=== PATIENT | male | born 1955 | race African-American/Black ===

== ENCOUNTER 2018-10-23 08:14 | Emergency (ER) | payer OTHER ==
[~2018-10-23] VITALS: Ht 185.4 cm; Wt 95.3 kg
--- NOTE | 2018-10-23 08:21 | NUR ---
ARRIVAL PT CAME TO ED WITH C/O OF R KNEE PAIN. ROM IS LIMITED, MINIMAL TO NO WT BEARING NOTED. BSM ON, REPORT GIVEN TO EDP.
[2018-10-23 08:36] VITALS: BP 146/75
[2018-10-23] MEDS ORDERED: TORADOL IM STA (08:38)
[2018-10-23] MEDS ORDERED: TORADOL ONE (08:39)
--- NOTE | 2018-10-23 08:45 | ER.PDOC ---
General Chief Complaint: Extremities Stated Complaint: RIGHT KNEE INJURY Time seen by MD: 08:43 Source: patient Exam Limitations: no limitations History of Present Illness Initial Comments Right knee pain since last night Context: twist Severity: moderate Associated Symptoms: popping sensation Allergies: Coded Allergies: Sulfa (Sulfonamide Antibiotics) (Verified Allergy, Unknown, 10/23/18) Past Medical History Medical History: hypertension, thyroid disease Surgical History: appendectomy, other Social History Smoking: non-smoker Alcohol Use: occassionally Drug Use: none Review of Systems Constitutional: no symptoms reported EENTM: no symptoms reported Respiratory: no symptoms reported Cardiovascular: no symptoms reported Gastrointestinal: no symptoms reported Musculoskeletal: see HPI All Other Systems: Reviewed and Negative Physical Exam General Appearance: Alert, No Apparent Distress Ankle: nml inspection, non-tender, nml ROM, no joint swelling, skin intact Knee: nml inspection, nml ROM, no joint swelling, tenderness (right knee) Thigh/Hip: nml inspection Gait: limited by pain Neuro/Vasc/Tendon: sensation nml, motor nml, no vascular compromise, tendon function nml Skin: warm/dry Head/ENT: nml inspection, pharynx nml Neck/Back: nml inspection, non-tender Abdomen: non-tender, pelvis stable Results/Orders Results/Orders Orders - SHRUTI CALDWELL MD Xr Knee Rt 2v (10/23/18 08:38) Ketorolac Tromethamine (Toradol) (10/23/18 08:38) Vital Signs Date Time Temp Pulse Resp B/P (MAP) Pulse Ox O2 Delivery O2 Flow Rate FiO2 10/23/18 08:36 97.8 63 16 146/75 (98) 95 Room Air 10/23/18 08:31 97.8 63 16 95 Room Air 10/23/18 08:31 97.8 63 16 Administered Medications Medications (Trade) Dose Ordered Sig/Guillermo Route PRN Reason Start Time Stop Time Status Last Admin Dose Admin Ketorolac Tromethamine (Toradol) 60 mg STAT STAT IM 10/23/18 08:38 10/23/18 08:40 DC 10/23/18 08:46 60 MG EKG/XRAY/CT/US XRAY Comments: No acute findings on right knee Departure Time of Disposition: 09:35 Disposition: 01 HOME, SELF-CARE Impression: Primary Impression: Right knee injury Condition: Stable Referrals: PCP,UNKNOWN (PCP) PRIMARY CARE PROVIDER Additional Instructions: Ice Diclofenac Tramadol F/U with your PCP next week Duration or Time Spent with Pa: 45 mins Problem Qualifiers Primary Impression: Right knee injury Encounter type: initial encounter Qualified Codes: S89.91XA - Unspecified injury of right lower leg, initial encounter SHRUTI CALDWELL MD Oct 23, 2018 08:45
--- NOTE | 2018-10-23 09:25 | DIREP ---
PROCEDURE:XRAY KNEE 2 VWS-RT COMPARISON:None. INDICATIONS:Pain behind knee and lateral side/Injury x 1 day FINDINGS: BONES:Normal. JOINTS:Moderate degenerative loss of joint space in the medial compartment. Mild osteophytosis in the medial compartment. No joint effusion. SOFT TISSUES:Normal. OTHER:No additional findings. CONCLUSION: 1. Moderate degenerative joint disease. No acute findings Dictated by: Miguel Clayton Jr. on 10/23/2018 at 09:24 AM
[2018-10-23 10:05] VITALS: BP 128/79
== END 2018-10-23 09:57 | disposition home or self-care (01) ==
LOC: ER 08:14
DX: S89.91XA Unspecified injury of right lower leg, initial encounter (principal); I10 Essential (primary) hypertension; E07.9 Disorder of thyroid, unspecified; Z88.2 Allergy status to sulfonamides; Z90.49 Acquired absence of other specified parts of digestive tract; X50.1XXA Overexertion from prolonged static or awkward postures, initial encounter; Y93.89 Activity, other specified; Y92.89 Other specified places as the place of occurrence of the external cause; Y99.8 Other external cause status
CPT/HCPCS: 73560; 96372; 99284; J1885